=== PATIENT | female | born 1995 | race Caucasian/White ===

== ENCOUNTER 2017-04-16 22:02 | Emergency (ER) | payer OTHER ==
[~2017-04-16] VITALS: Ht 175.3 cm; Wt 60.0 kg
[2017-04-16 22:04] VITALS: BP 140/92; PULSE 95; RESP 16; TEMP 98.5; O2SAT 98
--- NOTE | 2017-04-16 22:11 | PD ---
Physical Exam Date Seen by Provider: Apr 16, 2017 Time Seen by Provider: 22:07 Narrative 21-year-old female with one-week history of upper respiration symptoms which started with a fever, sore throat, ear pain, and decreased hearing in the left ear. Patient's complaint of chest congestion and discomfort of an 8 out of 10. Patient has some congestion in her chest and possible wheeze. Patient has sinus pressure and drainage. No heartburn. Patient states post cough emesis yesterday. Patient states she had a fever beginning but now this is improved. Patient was seen last Thursday and told she had an ear infection treated with amoxicillin which ended Thursday. Patient feels is not helping. Patient has a history of Mnire's disease for which she takes meclizine and hydrochlorothiazide. Vital signs are stable. Patient awaiting med bed placement. Data Data Last Documented VS Vital Signs Date Time Temp Pulse Resp B/P (MAP) Pulse Ox O2 Delivery O2 Flow Rate FiO2 04/16/17 22:04 98.5 95 16 140/92 (108) 98 Room Air [facility] Medical Record Reviewed: Yes Supervised Visit with MARINA: Yes Condition: Stable Edwar Rodriguez Apr 16, 2017 22:11
--- NOTE | 2017-04-16 22:19 | PD ---
HPI Chief Complaint: Cold / Flu Symptoms Time Seen by Provider: 22:13 Travel History International Travel<30 days: No Contact w/Intl Traveler<30days: No Traveled to known affect area: No History of Present Illness HPI 20 year-old female presents for the department for evaluation of cough and chest congestion persisting over the last 10 days. Patient states she had fever last week but it has resolved. Cough has a productive yellow-white phlegm. Patient continues to smoke tobacco cigarettes. States that she has anterior chest wall pain with cough. It is aching and sore. Approximately 4 out of 10. Denies any hemoptysis. Denies nausea or vomiting. She has no other symptoms to report. PFSH Past Medical History Medical History: Denies Significant Hx ?: Not LMP: CURRENT Social History Alcohol Use: Yes Tobacco Use: Yes Substance Use: No Allergies-Medications (Allergen,Severity, Reaction): Coded Allergies: No Known Allergies (Unverified , 04/16/17) Reported Meds & Prescriptions Reported Meds & Active Scripts Active Cheratussin AC Liq (Guaifenesin-Codeine Liq) 100-10 Mg/5 Ml Syrp 5-10 Ml PO Q4H PRN Do not exceed 6 doses/24 hrs. Proair Hfa 8.5 GM Inh (Albuterol Sulfate) 90 Mcg/Act Aer 2 Puff INH Q4HR PRN 108 mcg/actuation Medrol Dosepak (Methylprednisolone) 4 Mg Dspk 4 Mg PO DIRECTED Per Pharmacist direction Reported Meclizine (Meclizine HCl) 12.5 Mg Tab 12.5 Mg PO HS PRN Review of Systems Except as stated in HPI: all other systems reviewed are Neg Physical Exam Narrative GENERAL: Well-nourished, well-developed female patient in no acute distress SKIN: Focused skin assessment warm/dry. HEAD: Normocephalic. EYES: No scleral icterus. No injection or drainage. NECK: Supple, trachea midline. No JVD or lymphadenopathy. ENT: Mucosa pink and moist. Pharynx with erythema without exudate No uvular edema. No uvular, palatal, or tonsillar deviation. Airway patent. Nasal turbinates appear normal without nasal blood, purulent drainage or septal hematoma. CARDIOVASCULAR: Regular rate and rhythm without murmurs, gallops, or rubs. RESPIRATORY: Breath sounds coarse with intermittent inspiratory wheeze, equal bilaterally. No accessory muscle use. No crepitus to palpation. Tenderness with palpation over the medial anterior chest wall. GASTROINTESTINAL: Abdomen soft, non-tender, nondistended. MUSCULOSKELETAL: No cyanosis, or edema. BACK: Nontender without obvious deformity. No CVA tenderness. Data Data Last Documented VS Vital Signs Date Time Temp Pulse Resp B/P (MAP) Pulse Ox O2 Delivery O2 Flow Rate FiO2 04/16/17 23:08 98.3 79 16 116/63 (80) 97 04/16/17 22:30 Room Air Orders Orders Dexamethasone Inj (Decadron Inj) (04/16/17 22:30) Albuterol-Ipratropium Neb (Duoneb Neb) (04/16/17 22:30) Chest, Single Ap (04/16/17 ) [facility] Medical Decision Making Medical Screen Exam Complete: Yes Emergency Medical Condition: Yes Medical Record Reviewed: Yes Differential Diagnosis Bronchitis versus pneumonia versus costochondritis versus influenza versus common cold Narrative Course 21-year-old female presents to the emergency department for evaluation of cough and chest congestion. Patient appears without distress. She is given IM steroid and breathing treatment here. Upon reassessment she verbalizes marked improvement in her symptoms. Last Impressions Chest X-Ray 04/16/17 0000 Signed Impressions: Service Date/Time: March 22:14 - CONCLUSION: No evidence of acute cardiopulmonary disease. Enrico Begum MD Results were discussed with patient. This is likely a viral bronchitis. Patient is counseled on symptom control. She is counseled on tobacco cessation. She is encouraged to follow-up with the primary care provider. She agrees to return immediately with any acute worsening symptoms. Diagnosis Primary Impression: Bronchitis Additional Impression: Tobacco dependency Referrals: Primary Care Physician Patient Instructions: Acute Bronchitis (ED), General Instructions Additional Instructions: Humidified air may help to alleviate symptoms Follow-up with a primary care provider Stopped smoking tobacco cigarettes Return immediately with any acute worsening of symptoms Med/Other Pt SpecificInfo: Prescription(s) given Scripts Guaifenesin-Codeine Liq (Cheratussin AC Liq) 100-10 Mg/5 Ml Syrp 5-10 ML PO Q4H Y for COUGH AND COLD SYMPTOMS, #120 ML 0 Refills Do not exceed 6 doses/24 hrs. Prov: Meena Conner 04/16/17 Albuterol 8.5 GM Inh (Proair Hfa 8.5 GM Inh) 90 Mcg/Act Aer 2 PUFF INH Q4HR Y for SHORTNESS OF BREATH, #1 INHALER 0 Refills 108 mcg/actuation Prov: Meena Conner 04/16/17 Methylprednisolone Dosepak (Medrol Dosepak) 4 Mg Dspk 4 MG PO DIRECTED, #1 DSPK 0 Refills Per Pharmacist direction Prov: Meena Conner 04/16/17 Disposition: 01 DISCHARGE HOME Condition: Stable Meena Conner Apr 16, 2017 22:19
[2017-04-16] MEDS ORDERED: MECL12.574 PO (22:22)
[2017-04-16] MEDS ORDERED: DEXAMETHASONE SOD PHOS 20 MG/5 ML VIAL IM ONE (22:30)
[2017-04-16] MEDS ORDERED: RESP: ALBUTEROL 2.5 MG/IPRATROPIUM 0.5 MG NEB (SCH) NEB ONE (22:30)
--- NOTE | 2017-04-16 22:45 | RADRPT ---
EXAM DATE/TIME: 04/16/2017 22:14 [place] COMPARISON: No previous studies available for comparison. INDICATIONS : Cough, shortness of breath, and chest pain. MEDICAL HISTORY : None. SURGICAL HISTORY : None. ENCOUNTER: Initial ACUITY: 1 week PAIN SCORE: 8/10 LOCATION: Bilateral chest FINDINGS: A single view of the chest demonstrates the lungs to be symmetrically aerated without evidence of mas s, infiltrate or effusion. The cardiomediastinal contours are unremarkable. Osseous structures are intact. CONCLUSION: No evidence of acute cardiopulmonary disease. Enrico Begum MD on April 16, 2017 at 22:43 Board Certified Radiologist. This report was verified electronically.
[2017-04-16] MEDS ORDERED: MEDR4PAK PO (22:52)
[2017-04-16] MEDS ORDERED: ALBUAER3 INH (22:52)
[2017-04-16] MEDS ORDERED: CHERSYP2 PO (22:52)
[2017-04-16 23:08] VITALS: BP 116/63; TEMP 98.3
== END 2017-04-16 23:20 | disposition home or self-care (01) ==
LOC: NEPK 22:02
DX: J20.9 Acute bronchitis, unspecified (principal); F17.200 Nicotine dependence, unspecified, uncomplicated
CPT/HCPCS: 71010; 94640; 96372; 99284; J1100